=== PATIENT | male | born 1960 | race African-American/Black ===

== ENCOUNTER 2017-05-09 23:38 | Emergency (ER) | payer MEDICAID, OTHER ==
[~2017-05-09] VITALS: Ht 170.2 cm; Wt 88.0 kg
[2017-05-10] MEDS ORDERED: HYDROCODONE/ACETAMINOPHEN 5/325MG TABLET PO ONE (02:30)
[2017-05-10 05:53] VITALS: BP 126/85
== END 2017-05-10 06:22 | disposition home or self-care (01) ==
LOC: ER 23:38
DX: S63.287A Dislocation of proximal interphalangeal joint of left little finger, initial encounter (principal); Z87.11 Personal history of peptic ulcer disease; V18.0XXA Pedal cycle driver injured in noncollision transport accident in nontraffic accident, initial encounter; Y93.89 Activity, other specified; Y92.488 Other paved roadways as the place of occurrence of the external cause
CPT/HCPCS: 26770; 70450; 70486; 73120; 73130; 99284

== ENCOUNTER 2017-12-27 22:41 | Emergency (ER) | payer MEDICAID ==
[~2017-12-27] VITALS: Ht 165.1 cm; Wt 59.0 kg
[2017-12-28] MEDS ORDERED: SODIUM CHLORIDE 0.9% 1,000 ML IV ONE (02:52)
[2017-12-28] MEDS ORDERED: ONDANSETRON HCL 4MG/2ML VIAL IV STA (02:52)
[2017-12-28] MEDS ORDERED: FENTANYL CITRATE/PF 50MCG/ML 2ML VIAL IV ONE (03:00)
[2017-12-28 03:14] LABS: BASOPHILS % 0.2 % (0.0-2.0); EOSINOPHILS % 5.8 % (0.0-5.0); HEMATOCRIT. 44.3 % (42.0-52.0); HEMOGLOBIN. 14.9 g/dL (14.0-18.0); LYMPHOCYTES % 52.2 % (20.0-50.0); MEAN CORPUSCULAR HEMOGLOBIN 31.1 pg (28.0-32.0); MEAN CORPUSCULAR VOLUME 92.3 fL (80.0-94.0); MEAN PLATELET VOLUME 7.3 fl (7.4-10.4); MONOCYTES % 4.1 % (2.0-8.0); NEUTROPHILS % 37.7 % (40.0-76.0); PLATELET 236 x1000/uL (130-400); RED CELL DISTRIBUTION WIDTH 14.8 % (11.6-14.6)
[2017-12-28 03:19] LABS: CHLORIDE 107 mEq/L (98-107)
[2017-12-28] MEDS ORDERED: IOHEXOL-300 100 ML BOTTLE ONE (03:54)
[2017-12-28 07:11] VITALS: BP 129/80
== END 2017-12-28 07:16 | disposition home or self-care (01) ==
LOC: ER 22:41
DX: S09.8XXA Other specified injuries of head, initial encounter (principal); S39.81XA Other specified injuries of abdomen, initial encounter; F10.229 Alcohol dependence with intoxication, unspecified; Y90.9 Presence of alcohol in blood, level not specified; V19.3XXA Pedal cyclist (driver) (passenger) injured in unspecified nontraffic accident, initial encounter; Y93.55 Activity, bike riding; Y92.410 Unspecified street and highway as the place of occurrence of the external cause; R03.0 Elevated blood-pressure reading, without diagnosis of hypertension; R51 Headache
CPT/HCPCS: 36415; 70450; 71045; 71260; 72125; 74177; 80053; 83690; 84484; 85025; 86850; 86900; 86901; 96361; 96374; 96375; 99285; J2405; J3010; J7030; Q9967; Z7610